=== PATIENT | male | born 2000 | race Caucasian/White ===

== ENCOUNTER 2020-04-01 11:25 | Emergency (ER) | payer OTHER, SELFPAY ==
--- NOTE | 2020-04-01 11:37 | ED.GENADULT ---
HPI - General Adult General Chief complaint: Unspecified Stated complaint: UNSPECIFIED Time Seen by Provider: 04/01/20 11:45 Source: patient Mode of arrival: ambulatory Limitations: no limitations History of Present Illness HPI narrative: Bo Sharp is a 19 you male with no PMH is the son of a positive contact that was tested at [place] 2 days ago. His work requires him now to be tested and isolate if he is positive or must have a negative test to return to work. Related Data Home Medications Medication Instructions Recorded Confirmed No Home Medications 04/01/20 04/01/20 Allergies Allergy/AdvReac Type Severity Reaction Status Date / Time No Known Allergies Allergy Verified 04/01/20 11:29 Review of Systems Review of Systems: Narrative: CONSTITUTIONAL: Denies fever, chills, sweats. EYES: Denies visual changes, redness, discharge. ENT: Denies rhinorrhea, congestion, sore throat, otalgia. Ongoing sinus congestion not new) CARDIOVASCULAR: Denies chest pain, palpitations, edema. RESPIRATORY: Denies dyspnea, wheezing, cough GASTROINTESTINAL: Denies abdominal pain, nausea, vomiting, diarrhea. GENITOURINARY: Denies dysuria, hematuria, abnormal discharge SKIN: Denies rash or itching. NEUROLOGIC: Denies numbness, or focal weakness. PSYCHIATRIC: Denies anxiety or depression. [facility] Family History Family History Other No active medical problems Social History Social History Smoking status: Never smoker Alcohol intake: current Gender identity (if verbalized by the patient): Male Comments At time of signature, I agree with nursing past medical, surgical, social and family history. There is no relevant family history pertinent to the presenting complaint. Exam Narrative: Exam Narrative: GENERAL: This is a well-nourished, well-developed patient, in mild distress. HEAD: normocephalic, atraumatic. EYES: Sclera clear/white. Vision is grossly intact. EARS: External ears normal, Hearing grossly intact. NOSE: External nose normal without nasal discharge, nares without redness, has rhinorrhea. THROAT: Mucous membranes moist, NECK: Neck supple, non-tender CARDIOVASCULAR: Regular rate and rhythm without murmurs, gallops, or rubs. RESPIRATORY: Clear to auscultation. Breath sounds equal bilaterally. No wheezes, rales, or rhonchi. GASTROINTESTINAL: Abdomen soft, SKIN: warm, intact with no suspicious lesions or rash, good texture and turgor. NEURO: awake, alert, and oriented to person, place and time. There were no obvious focal neurologic abnormalities. Steady gait EXTREMITIES: Normal range of motion. BACK: Nontender without deformity Course Course Emergency Course: covid ordered. Discussed isolation and quarantining and what to do in case of a negative and positive test Patient plans to stay with someone else if his cover test is negative; discussed hemorrhage quarantine father and son but need if both of them are positive; general aspects of COVID virus and symptoms were discussed Vital Signs Vital signs: Vital Signs Temperature 97.6 F 04/01/20 11:43 Pulse Rate 62 04/01/20 11:43 Respiratory Rate 16 04/01/20 11:43 Blood Pressure 126/85 04/01/20 11:43 Pulse Oximetry 100 04/01/20 11:43 Temperature 97.6 F 04/01/20 11:43 Pulse Rate 62 04/01/20 11:43 Respiratory Rate 16 04/01/20 11:43 Blood Pressure 126/85 04/01/20 11:43 Pulse Oximetry 100 04/01/20 11:43 Medical Decision Making Differential Diagnosis Differential Diagnosis: Viral syndrome versus negative cover test versus quarantine for cover Vital Signs Vital Signs: Vital Signs Temperature 97.6 F 04/01/20 11:43 Pulse Rate 62 04/01/20 11:43 Respiratory Rate 16 04/01/20 11:43 Blood Pressure 126/85 04/01/20 11:43 Pulse Oximetry 100 04/01/20 11:43 Temperature 97.6 F 04/01/20 11:4
[2020-04-01 11:43] VITALS: BP 126/85; PULSE 62; RESP 16; TEMP 36.4; O2SAT 100
== END 2020-04-01 12:08 | disposition home or self-care (01) ==
PROVIDERS: Emergency Provider Nurse Practitioner
DX: Z20.828 Contact with and (suspected) exposure to other viral communicable diseases (principal)
CPT/HCPCS: 99211; G0463

== ENCOUNTER 2020-08-09 13:34 | Emergency (ER) | payer OTHER, SELFPAY ==
[2020-08-09 13:46] VITALS: BP 131/72; PULSE 75; RESP 16; TEMP 36.4; O2SAT 100
--- NOTE | 2020-08-09 14:08 | ED.DENTAL ---
HPI - Dental/Oral General Chief complaint: Dental/Oral Stated complaint: Bump on roof of mouth Time Seen by Provider: 08/09/20 13:48 Source: patient and RN notes reviewed Mode of arrival: ambulatory Limitations: no limitations History of Present Illness HPI Narrative: Patient presents today complaining of an irritating bump to the roof of his mouth x3 days. States he is not sure if the bump is getting worse or better. Denies pain, but states it is just irritated. He has tried no [id number] interventions prior to arrival. Denies any sick symptoms to include fever, cough, congestion, rhinorrhea. Denies any tooth pain. Denies any facial swelling. Related Data Allergies Allergy/AdvReac Type Severity Reaction Status Date / Time minocycline Allergy Unknown Nausea Verified 08/09/20 14:00 Review of Systems Review of Systems: Narrative: CONSTITUTIONAL: Denies body aches, fever, chills, or sweats. EYES: Denies visual changes, redness, or discharge. ENT: Denies rhinorrhea, congestion, sore throat, or otalgia. Bump to roof of mouth CARDIOVASCULAR: Denies chest pain, palpitations, or edema. RESPIRATORY: Denies cough or dyspnea. GASTROINTESTINAL: Denies abdominal pain, nausea, vomiting, or diarrhea. GENITOURINARY: Denies dysuria or hematuria. SKIN: Denies rash, itching, or wounds. MUSCULOSKELETAL: Denies back pain, joint pain, or myalgia. NEUROLOGIC: Denies headache, numbness, tingling, or weakness. PSYCH: Denies depression or anxiety. [facility] Family History Family History (System 04/10/20 @ 15:03 by Glenn Joe) Father Hypertension Other No active medical problems Social History Social History (System 04/10/20 @ 15:03 by Glenn Joe) Smoking status: Never smoker Alcohol intake: current Gender identity (if verbalized by the patient): Male Comments At time of signature, I have reviewed and agree with nursing past medical, surgical, social and family history unless otherwise noted. Please see nursing chart for further information. There is no relevant family history pertinent to the presenting complaint Exam Narrative: Exam Narrative: GENERAL: Well-appearing, well-nourished, and in no acute distress. HEAD: Normocephalic, atraumatic. EYES: EOMI. No redness or drainage. Conjunctivae normal. ENT: Mucous membranes pink and moist. Nares clear. No rhinorrhea. Throat normal. Uvula midline. 4-5mm bump to the right posterior hard palate that is very faintly pink. Nontender to palpation. No fluctuance. NECK: Normal AROM. Supple. No lymphadenopathy. CHEST: No respiratory distress. EXTREMITIES: Normal range of motion. No edema. SKIN: Warm, dry, no rash. Capillary refill normal. Normal skin turgor. NEURO: No focal deficits. Alert and oriented x3. Gait steady. PSYCH: Normal affect. No signs of depression or anxiety. Course Vital Signs Vital signs: Vital Signs Temperature 97.6 F 08/09/20 13:46 Pulse Rate 75 08/09/20 13:46 Respiratory Rate 16 08/09/20 13:46 Blood Pressure 131/72 08/09/20 13:46 Pulse Oximetry 100 08/09/20 13:46 Temperature 97.6 F 08/09/20 13:46 Pulse Rate 75 08/09/20 13:46 Respiratory Rate 16 08/09/20 13:46 Blood Pressure 131/72 08/09/20 13:46 Pulse Oximetry 100 08/09/20 13:46 Reviewed. Pt has been instructed to follow up with his PCP regarding his elevated blood pressure today. MDM - Dental/Oral Differential Diagnosis Differential diagnosis: Likely gingival abscess, dental caries, toothache, dental abscess, fracture of tooth, aphthous ulcer and other (Jyil-dlbf-jvr-mouth disease, stomatitis, herpes) Critical Care Time Critical Care Time Critical Care Time: No Discharge Plan Discharge Clinical Impression: Hard palate ulcer Patient Disposition: Home, Self-Care Condition: Stable Instructions: Antibiotic Form Additional Instructions: Please take the amoxicillin as prescribed until gone. Follow up with your PCP or dentist if symptoms
== END 2020-08-09 14:17 | disposition home or self-care (01) ==
PROVIDERS: Emergency Provider Nurse Practitioner
DX: K13.79 Other lesions of oral mucosa (principal)
CPT/HCPCS: 99213; G0463

== ENCOUNTER 2021-02-11 15:46 | Emergency (ER) | payer OTHER, SELFPAY ==
[2021-02-11 16:20] VITALS: BP 116/69; PULSE 93; RESP 16; TEMP 36.4; O2SAT 100
--- NOTE | 2021-02-11 17:01 | ED.URI ---
HPI - URI/Sore Throat General Chief Complaint: Upper Respiratory Infection Stated Complaint: sore throat Time Seen by Provider: 02/11/21 17:00 Source: patient Mode of arrival: ambulatory Limitations: no limitations History of Present Illness HPI Narrative: Bo Sharp is a 20 yo male with no PMH [facility] and bloody mucus and cough, and increasing pain in neck. Started about a week ago but not improved with [id number]-cpigfge treatment Related Data Allergies Allergy/AdvReac Type Severity Reaction Status Date / Time minocycline Allergy Unknown Nausea Verified 02/11/21 16:36 Review of Systems Review of Systems: Narrative: CONSTITUTIONAL: Denies fever, chills, sweats. EYES: Denies visual changes, redness, discharge. ENT: Denies rhinorrhea, congestion, has sore throat, otalgia.painfil LN in neck CARDIOVASCULAR: Denies chest pain, palpitations, edema. RESPIRATORY: Denies dyspnea, wheezing, has cough GASTROINTESTINAL: Denies abdominal pain, nausea, vomiting, diarrhea. GENITOURINARY: Denies dysuria, hematuria, abnormal discharge SKIN: Denies rash or itching. NEUROLOGIC: Denies numbness, or focal weakness. PSYCHIATRIC: Denies anxiety or depression. [facility] Past Medical History Medical History Pilonidal cyst Surgical History Surgical History Hx of tonsillectomy Family History Family History Father Hypertension Grandparent Cancer Other Heart disease No active medical problems Social History Social History Social History: Single Smoking status: Never smoker Second hand tobacco smoke exposure: No Alcohol intake: current Substance use: never Substance use type: does not use Additional occupation/education comments: Pt also goes to school full-time. Gender identity (if verbalized by the patient): Male Comments At time of signature, I agree with nursing past medical, surgical, social and family history. There is no relevant family history pertinent to the presenting complaint. Exam Narrative: Exam Narrative: GENERAL: This is a well-nourished, well-developed patient, in mild distress. HEAD: normocephalic, atraumatic. EYES:Sclera clear/white. Vision is grossly intact. EARS: External ears normal, auditory canals clear and without drainage, TMs normal without perforation. Hearing grossly intact. NOSE: External nose normal without nasal discharge, nares without redness, no rhinorrhea. THROAT: Mucous membranes moist, posterior pharynx dark erythema with edema of the uvula NECK: Neck supple,tender submandibular lymph nodes CARDIOVASCULAR: Regular rate and rhythm without murmurs, gallops, or rubs. RESPIRATORY: Clear to auscultation. Breath sounds equal bilaterally. No wheezes, rales, or rhonchi. GASTROINTESTINAL: Abdomen soft, SKIN: warm, intact with no suspicious lesions or rash, good texture and turgor. NEURO: awake, alert, and oriented to person, place and time. There were no obvious focal neurologic abnormalities. Steady gait EXTREMITIES: Normal range of motion. BACK: Nontender without deformity Course Course Emergency Course: Patient came to urgent care with complaints of sore throat and difficulty swallowing and states his uvula feels like it has enlarged Strep test positive Started on amoxicillin and prednisone-first dose given here Given reasons to follow-up with the ER otherwise to finish antibiotics and take 5 days of prednisone as prescribed Vital Signs Vital signs: Vital Signs Temperature 97.5 F L 02/11/21 16:20 Pulse Rate 93 02/11/21 16:20 Respiratory Rate 16 02/11/21 16:20 Blood Pressure 116/69 02/11/21 16:20 Pulse Oximetry 100 02/11/21 16:20 Temperature 97.5 F L 02/11/21 16:20 Pulse Rate 93
[2021-02-11] MEDS: predniSONE 20 MG TABLET 60 MG PO (17:22)
== END 2021-02-11 17:26 | disposition home or self-care (01) ==
PROVIDERS: Emergency Provider Nurse Practitioner; PCP Family Medicine
DX: K12.2 Cellulitis and abscess of mouth (principal); J02.0 Streptococcal pharyngitis
CPT/HCPCS: 87880; 99213; G0463; J7512

== ENCOUNTER 2022-02-17 18:38 | Emergency (ER) | payer OTHER, SELFPAY ==
[2022-02-17 18:49] VITALS: BP 140/81; PULSE 67; RESP 16; TEMP 36.8; O2SAT 99
--- NOTE | 2022-02-17 19:18 | ED.WOUNDLAC ---
HPI - Wound/Laceration General Chief Complaint: Wound/Laceration Stated Complaint: cyst Time Seen by Provider: 02/17/22 19:18 Source: patient Mode of arrival: ambulatory Limitations: no limitations History of Present Illness HPI narrative: 21-year-old male presented for complaint of cyst to the left upper buttock that popped about 2 hours prior to arrival. He endorses a history of pilonidal cyst for 6 years, has never ruptured or been drained. He states he drained a large amount of white material. He denies nausea, vomiting, fevers or chills. He currently denies pain. Related Data Allergies Allergy/AdvReac Type Severity Reaction Status Date / Time minocycline Allergy Unknown Nausea Verified 12/29/21 16:27 Review of Systems Review of Systems: CONSTITUTIONAL: Denies body aches, fever, chills, or sweats. EYES: Denies visual changes, redness, or discharge. ENT: Denies rhinorrhea, congestion, sore throat, or otalgia. CARDIOVASCULAR: Denies chest pain, palpitations, or edema. RESPIRATORY: Denies cough or dyspnea. GASTROINTESTINAL: Denies abdominal pain, nausea, vomiting, or diarrhea. GENITOURINARY: Denies dysuria or hematuria. SKIN: Cyst to upper buttock MUSCULOSKELETAL: Denies back pain, joint pain, or myalgia. NEUROLOGIC: Denies headache, numbness, tingling, or weakness. PSYCH: Denies depression or anxiety. [facility] Past Medical History Medical History Pilonidal cyst Urticaria Surgical History Surgical History Hx of tonsillectomy Family History Family History Father Hypertension Grandparent Cancer Other Heart disease No active medical problems Social History Social History Social History: Single Smoking status: Never smoker Second hand tobacco smoke exposure: No Alcohol intake: current Alcohol use details: Occasionally Substance use: never Substance use type: does not use Additional occupation/education comments: Pt also goes to school full-time. Gender identity (if verbalized by the patient): Male Sexual Orientation (if Verbalized by the Patient): Straight or Heterosexual Comments At time of signature, I have reviewed and agree with nursing past medical, surgical, social and family history unless otherwise noted. Please see nursing chart for further information. There is no relevant family history pertinent to the presenting complaint Exam Narrative: Constitutional: well-nourished ENT: Mucous membranes moist. Oropharynx without edema, erythema or lesions. NECK: Supple. No lymphadenopathy CHEST: Clear to auscultation. No respiratory distress. HEART: Regular rate and rhythm. SKIN: Warm, dry. Left upper buttock with subcutaneous cyst versus a approx 2cm diameter and fluctuance center, no erythema or induration no active drainage;center of buttock with approx 4mm open area c/w previously described drained site. NEURO: Alert and oriented x3. PSYCH: Normal mood and affect Course Course Emergency Course: Patient is aware of diagnosis, understands and agrees to treatment plan. Anticipatory guidance given. Patient agrees to follow-up as directed and is aware of reasons to seek care at the emergency department. Portions of this record may have been created with voice recognition software Level of Care: Express Care Visit Vital Signs Vital signs: Vital Signs Temperature 98.2 F 02/17/22 18:49 Pulse Rate 67 02/17/22 18:49 Respiratory Rate 16 02/17/22 18:49 Blood Pressure 140/81 02/17/22 18:49 Pulse Oximetry 99 02/17/22 18:49 Oxygen Delivery Room Air 02/17/22 18:49 Temperature 98.2 F 02/17/22 18:49 Pulse Rate 67 02/17/22 18:49 Respiratory Rate 16 02/17/22 18:49 Blood Pressure 140/81 02/17/22 18:49 Pulse Ox
--- NOTE | 2022-02-17 19:53 | PC.NURSE ---
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
== END 2022-02-17 20:10 | disposition home or self-care (01) ==
PROVIDERS: Emergency Provider Nurse Practitioner Family; PCP Family Medicine
DX: L72.9 Follicular cyst of the skin and subcutaneous tissue, unspecified (principal)
CPT/HCPCS: 10060; 99213; G0463

== ENCOUNTER 2022-05-06 16:03 | Emergency (ER) | payer OTHER, SELFPAY ==
--- NOTE | 2022-05-06 16:11 | ED.URI ---
HPI - URI/Sore Throat General Stated Complaint: Sore Throat, Fatique, Right Ear Irritation Time Seen by Provider: 05/06/22 16:11 Source: patient Mode of arrival: ambulatory Limitations: no limitations History of Present Illness HPI Narrative: Mr. Sharp is a 21-year-old male patient presenting to the clinic today with complaints of sore throat, fatigue, and right ear discomfort, nausea and vomiting that began this morning. He reports the throat discomfort has lasted for approximately 1 week and feels as though he may have cottonmouth. He has a history of tonsillectomy in the past. MD elicited complaint: sore throat and nasal congestion Related Data Home Medications Medication Instructions Recorded Confirmed No Home Medications 04/07/22 04/12/22 Allergies Allergy/AdvReac Type Severity Reaction Status Date / Time minocycline Allergy Unknown Nausea Verified 05/06/22 16:23 Review of Systems Review of Systems: Pertinent positives per HPI. Patient denies any rash, headache, visual changes, dizziness, cough, shortness of breath, chest pain, palpitations, diarrhea, constipation, abdominal pain, or any urinary issues. [facility] Past Medical History Medical History Pilonidal cyst Urticaria Surgical History Surgical History Hx of tonsillectomy Family History Family History Father Hypertension Grandparent Cancer Other Heart disease No active medical problems Social History Social History Social History: Single Smoking status: Never smoker Second hand tobacco smoke exposure: No Alcohol intake: current Alcohol use details: Occasionally Substance use: never Substance use type: does not use Additional occupation/education comments: Pt also goes to school full-time. Gender identity (if verbalized by the patient): Male Sexual Orientation (if Verbalized by the Patient): Straight or Heterosexual Comments At the time of my signature, I reviewed and agree with the nursing past medical, surgical, social, and family history. There is no relevant family history pertinent to the patient complaint. Exam Narrative: General: Well-developed, well nourished, in no apparent distress Head: Normocephalic, atraumatic Eyes: Pupils equally round and reactive to light bilaterally, EOM intact, sclera and conjunctive clear, no discharge, lids normal Ears: TMs intact and clear, ear canals clear, no drainage, grossly hearing normal. Nose: Nares patent, no discharge, no inflammation, no sinus tenderness. Mouth: Oral pharynx without lesions or masses, good dentition, MMM. Neck: Supple, trachea midline, no enlargement of anterior or posterior cervical nodes, no thyroid masses or goiter palpable. Cardio: Regular rate and rhythm, s1 and s2 normal, no murmur appreciated. Resp: Clear to auscultation bilaterally, no rhonchi, rales, wheezing or rubs Course Course Emergency Course: Portions of this record may have been created with voice recognition software. Level of Care: Express Care Visit Vital Signs Vital signs: Vital signs reviewed MDM - URI/Sore Throat MDM Narrative Medical decision making narrative: At the time of visit patient is resting comfortably on the exam table. This appears to be viral pharyngitis/viral syndrome however the patient is requesting a strep screen to be done. We are currently out of rapid testing so I will do a strep culture per his request. Supportive measures were discussed with the patient he voiced understanding discharge instructions and agrees to the treatment plan. Differential Diagnosis Differential diagnosis: Likely upper respiratory infection, otitis media, sinusitis, viral infection, bronchitis, influenza, pharyngitis a
[2022-05-06 16:16] VITALS: BP 128/57; PULSE 101; RESP 16; TEMP 37.8; O2SAT 99
== END 2022-05-06 16:30 | disposition home or self-care (01) ==
PROVIDERS: Emergency Provider Nurse Practitioner Family; PCP Family Medicine
DX: B34.9 Viral infection, unspecified (principal); J02.9 Acute pharyngitis, unspecified
CPT/HCPCS: 87081; 99212; G0463